=== PATIENT | female | born 1945 | race Two or more races ===

== ENCOUNTER 2019-01-11 11:41 | Outpatient (CLI) | payer OTHER | END 2019-01-11 16:49 | disposition home or self-care (01) | LOC: RAD 11:41 | DX: R05 Cough (principal) ==

== ENCOUNTER → 2019-01-20 | Outpatient (CLI) | payer OTHER | END | disposition home or self-care (01) | LOC: NUCLEAR 01-10 11:00 | DX: M81.0 Age-related osteoporosis without current pathological fracture (principal) ==

== ENCOUNTER 2020-08-15 09:51 | Outpatient (CLI) | payer OTHER | END 2020-08-15 10:03 | disposition home or self-care (01) | LOC: TOM 09:51 | PROVIDERS: ATTEND Internal Medicine | DX: R51 Headache (principal) ==

== ENCOUNTER 2020-12-10 13:12 | Outpatient (CLI) | payer OTHER | END 2020-12-10 15:55 | disposition home or self-care (01) | LOC: PPH VACUNA 13:12 | PROVIDERS: ATTEND Emergency Medicine Pediatric Emergency Medicine | DX: Z23 Encounter for immunization (principal) ==

== ENCOUNTER → 2020-12-31 08:00 | Outpatient (CLI) | payer OTHER | END | disposition home or self-care (01) | LOC: PPH VACUNA 08:00 | PROVIDERS: ATTEND Emergency Medicine Pediatric Emergency Medicine | DX: Z23 Encounter for immunization (principal) ==

== ENCOUNTER 2021-07-24 08:40 | Outpatient (CLI) | payer OTHER | END 2021-07-24 08:42 | disposition home or self-care (01) | LOC: LAB 08:40 | PROVIDERS: ATTEND Internal Medicine | DX: M19.09 Primary osteoarthritis, other specified site (principal); E03.8 Other specified hypothyroidism; E78.2 Mixed hyperlipidemia; D64.89 Other specified anemias; R73.09 Other abnormal glucose; Z12.11 Encounter for screening for malignant neoplasm of colon; E55.9 Vitamin D deficiency, unspecified; D51.8 Other vitamin B12 deficiency anemias; R76.8 Other specified abnormal immunological findings in serum ==

== ENCOUNTER → 2021-07-24 | Outpatient (CLI) | payer OTHER | END | disposition home or self-care (01) | LOC: SONOGRAMA 08:15 → MAMO-SONO 09:28 | PROVIDERS: ATTEND Internal Medicine | DX: N60.11 Diffuse cystic mastopathy of right breast (principal); N60.12 Diffuse cystic mastopathy of left breast; Z12.31 Encounter for screening mammogram for malignant neoplasm of breast ==

== ENCOUNTER 2021-08-07 13:55 | Outpatient (CLI) | payer OTHER | END 2021-08-07 13:56 | disposition home or self-care (01) | LOC: NUCLEAR 13:55 | PROVIDERS: ATTEND Internal Medicine | DX: M81.0 Age-related osteoporosis without current pathological fracture (principal) ==

== ENCOUNTER 2022-03-06 09:18 | Outpatient (CLI) | payer OTHER | END 2022-03-06 09:37 | disposition home or self-care (01) | LOC: TOM 09:18 | PROVIDERS: ATTEND Internal Medicine | DX: J44.9 Chronic obstructive pulmonary disease, unspecified (principal) ==

== ENCOUNTER 2022-04-16 12:22 | Outpatient (CLI) | payer OTHER | END 2022-04-16 12:23 | disposition home or self-care (01) | LOC: NUCLEAR 12:22 | PROVIDERS: ATTEND Internal Medicine | DX: R41.89 Other symptoms and signs involving cognitive functions and awareness (principal) | CPT/HCPCS: 78803; A9557 ==

== ENCOUNTER 2023-04-15 08:47 | Outpatient (CLI) | payer OTHER | END 2023-04-15 08:53 | disposition home or self-care (01) | LOC: TOM 08:47 | PROVIDERS: ATTEND Internal Medicine | DX: R10.84 Generalized abdominal pain (principal); R10.2 Pelvic and perineal pain ==

== ENCOUNTER 2023-04-16 08:03 | Outpatient (CLI) | payer OTHER | END 2023-04-16 08:12 | disposition home or self-care (01) | LOC: SONOGRAMA 08:03 | PROVIDERS: ATTEND Internal Medicine | DX: K76.0 Fatty (change of) liver, not elsewhere classified (principal) ==

== ENCOUNTER 2023-05-17 09:54 | Outpatient (CLI) | payer OTHER | END 2023-05-17 09:56 | disposition home or self-care (01) | LOC: NUCLEAR 09:54 | PROVIDERS: ATTEND Internal Medicine | DX: I65.29 Occlusion and stenosis of unspecified carotid artery (principal) ==

== ENCOUNTER 2023-09-28 09:44 | Outpatient (CLI) | payer OTHER | END 2023-09-28 09:45 | disposition home or self-care (01) | LOC: NUCLEAR 09:44 | PROVIDERS: ATTEND Internal Medicine | DX: G30.9 Alzheimer's disease, unspecified (principal) | CPT/HCPCS: 78803; A9557 ==

== ENCOUNTER 2023-09-29 12:56 | Outpatient (CLI) | payer OTHER | END 2023-09-29 12:57 | disposition home or self-care (01) | LOC: NUCLEAR 12:56 | PROVIDERS: ATTEND Internal Medicine | DX: M81.0 Age-related osteoporosis without current pathological fracture (principal) ==

== ENCOUNTER 2023-09-30 12:44 | Outpatient (CLI) | payer OTHER | END 2023-09-30 12:47 | disposition home or self-care (01) | LOC: MAMO-SONO 12:44 | PROVIDERS: ATTEND Internal Medicine | DX: N60.11 Diffuse cystic mastopathy of right breast (principal); N60.12 Diffuse cystic mastopathy of left breast; Z12.31 Encounter for screening mammogram for malignant neoplasm of breast ==

== ENCOUNTER → 2023-11-01 | Outpatient (CLI) | payer OTHER | END | disposition home or self-care (01) | LOC: RAD 09:51 | PROVIDERS: ATTEND Internal Medicine | DX: R07.9 Chest pain, unspecified (principal) ==

== ENCOUNTER 2024-05-31 11:19 | Outpatient (CLI) | payer OTHER | END 2024-05-31 11:23 | disposition home or self-care (01) | LOC: RAD 11:19 | DX: M25.552 Pain in left hip (principal) ==

== ENCOUNTER 2025-01-19 13:22 | Outpatient (CLI) | payer OTHER | END 2025-01-19 13:26 | disposition home or self-care (01) | LOC: MAMO-SONO 13:22 | PROVIDERS: ATTEND Internal Medicine | DX: N60.11 Diffuse cystic mastopathy of right breast (principal); N60.12 Diffuse cystic mastopathy of left breast; I10 Essential (primary) hypertension; Z12.31 Encounter for screening mammogram for malignant neoplasm of breast ==